=== PATIENT | male | born 1940 | race Caucasian/White ===

== ENCOUNTER 2018-02-21 12:36 | Inpatient (IN) | payer MEDICARE ==
[2018-02-21 13:47] VITALS: BMI 29.9
[2018-02-21] MEDS ORDERED: Nitroglycerin 0.4 MG TAB (25 Tab Bottle) SL PRN (14:33)
[2018-02-21] MEDS ORDERED: Docusate 100 MG CAP PO PRN (14:33)
[2018-02-21] MEDS ORDERED: Mag-Al Plus 1200 MG/1200 MG/120 MG/30 ML UDCUP PO PRN (14:33)
[2018-02-21] MEDS: Acetaminophen 500 MG TAB PO SCH ×2 (16:45→20:04)
[2018-02-21] MEDS: Metoprolol Tartrate 25 MG TAB PO SCH (20:04)
--- NOTE | 2018-02-22 00:01 | HP ---
DATE OF ADMISSION: 02/21/2018 CHIEF COMPLAINT: Transferred to [facility] for skilled rehabilitation status post hospitalization. HISTORY OF PRESENT ILLNESS AND HOSPITAL COURSE: Mr. Rosas is a very pleasant 77-year-old male from [place], [place], who was transferred to [facility] for skilled rehabilitation, coming from [facility]. The patient had a history of reflux, hypertension, and smoking. He was initially sent to the Emergency Room in [place], [place] with the complaint of acute chest discomfort. This was associated with diaphoresis, described as "clenching sweats". He had 4 episodes, the one woke him up from sleep. The patient was subsequently transferred after the initial evaluation from the ER subsequently transferred to [facility] due to slightly elevated troponin with negative EKG. On further examination and evaluation at [facility], the patient's EKGs showed sinus rhythm with nonspecific ST changes. Serial cardiac enzymes were again negative. He has had an echocardiogram, EGD in [facility]. The patient was diagnosed with unstable angina and underwent a fluoroscopic angiography of an internal mammary artery and angiography of the coronary arteries, bilateral catheterization of the left heart. The patient had found to have left ventricular ejection fraction of 60- 65%, end-diastolic pressure. The left coronary artery has 20% plaque in the distal segment. The left anterior descending artery has a large-sized vessel which gave rise to a large diagonal branch with severe 95% ulcerated plaque in the proximal segment. The first diagonal artery has a severe 95% stenosis. This gave rise to 2 sub branches. The second sub branch which is the larger of the two has 99% ostial stenosis present. The circumflex coronary artery has a large-sized vessel which gave rise to obtuse marginal branches. The first obtuse marginal artery has diffuse nonocclusive luminal irregularities. The second obtuse marginal artery has a severe 80% stenosis in the midsegment. The right coronary artery has a large-sized vessel which gave rise to a large posterior descending artery, moderate posterior lateral trigger branch. There is a 20% plaque in the proximal segment. There is a 20% plaque in the mid portion of the posterior descending artery. The left internal mammary is widely patent. Patient was then recommended coronary bypass graft surgery, for which he underwent on 02/14/[address] Herbert Hurd. The patient had an unremarkable postoperative course. During this hospitalization, his BP was mildly elevated, so he was started on the Beta leroy together with the statin He is now ambulating some using a rolling walker. The patient lives alone and remains generally weak. He was deemed to benefit more of skilled rehabilitation prior to going back to the home environment. The patient was then transferred to [facility] to undergo rehabilitation. He was transferred with an order to continue DVT prophylaxis with Lovenox. When seen today, the patient was resting comfortably in bed. He is awake, alert, oriented. He has a good recollection of what had happened why he ended up in the ER as above. No other new issues reported. Reports that he has been pain-free since 24 hours after the procedure. No other new issues at this time. MEDICAL HISTORY: He admits to acid reflux. He was a borderline diabetic at one time. He denies any other medical problems. PAST SURGICAL HISTORY: He has had surgery of the left eye. Cardiac catheterization on 02/14/2018 at [facility] by Dr. Hurd for CAD and unstable angina. SOCIAL HISTORY: Patient is single, has been 4 times. He lives near [place]. He smoked from age until a 64, approximately 1-1/2 packs of cigarettes per day. He drinks alcohol occasionally. He has no significant history of illicit drug use. FAMILY HISTORY: Mother at about 82 because of old age. Father in his 80s because of lung cancer. One brother with lung cancer. One brother with melanoma. One sister in a motor vehicular accident and one sister of fall age. MEDICATIONS: Acetaminophen 500 mg p.o. q.4 hours p.r.n., aspirin 81 mg p.o. daily, atorvastatin 40 mg p.o. daily, cholecalciferol 1000 units p.o. daily, docusate 100 mg p.o. daily p.r.n., Lovenox 40 mg subcu daily, magnesium oxide, simethicone 30 mL p.o. q.4 hours p.r.n., metoprolol tartrate 25 mg p.o. b.i.d., nitroglycerin 0.4 mg sublingual p.r.n., pantoprazole 40 mg p.o. daily. ALLERGIES: NKDA. REVIEW OF SYSTEMS: General: Denies fever or chills. Reports general weakness and fatigue. HEENT: No acute visual changes or hearing changes. No cold symptoms or cough. Respiratory: No shortness of breath, pain with breathing, sputum production. Cardiac: As per HPI, currently no recurrence of chest pain , no pain with breathing. No dyspnea on exertion or paroxysmal nocturnal dyspnea. Gastrointestinal: No nausea or vomiting. He has history of reflux symptoms. No rectal bleeding. No constipation or diarrhea. Genitourinary: No dysuria, hematuria, frequency, urgency, or incontinence. Musculoskeletal: Intermittent mild arthralgia. No joint swelling, no joint effusions, no myalgia. Skin: No rashes, no lesions. Known history of nonhealing ulcers. Psych: No depressive symptoms, anxiety, or insomnia. PHYSICAL EXAMINATION: VITAL SIGNS: BP 153/70 HR 86 RR 22 Temp 98.6 O2 sat 93% at RA WT ; 233 lbs Ht 72 inches GENERAL: Awake,alert, interactive, Comfortable on exam, Not in acute distress. HEENT: normocephalic, atraumatic. PERRL,EOMI,clear naris,oropharynx-normal. Moist oral mucosa. NECK: supple, No LAD, flat JVD. CHEST: normal excursion. nonlabored breathing. RESPIRATORY: Good air movements.Clear to auscultation.NO crackles, no wheezes, no rhonchi,no rales. CARDIO: RSR, normal S1 and S2. no murmurs. GI: soft,flat,nondistended, nontender, NABS. Negative CVA tenderness. EXTREMITIES: No cyanosis, no leg edema. NEURO: nonfocal, DTR's 2 ++, unsteady gait. PSYCH: pleasant,calm, cooperative. SKIN: Post op sites dry and healing in appearance, dry,no drainage, no exudates. ASSESSMENT AND PLAN: 1. Physical deconditioning. 2. General weakness. 3. History of unstable angina, status post cardiac catheterization showing severe vessel coronary artery disease, status post coronary artery bypass graft in 02/15. 4. Hypertension, apparently diagnosed at this hospitalization with no prior history of hypertension or hypertension medications. 5. Dyslipidemia. 6. Gastroesophageal reflux disease. 7. History of hiatal hernia. 8. Chronic kidney disease, stage 3. 9. Leukocytosis, improving. Most likely stress related in the setting of coronary artery bypass graft . No signs of active infection. 10. A [id number] history of tobacco abuse. The patient is admitted to med/surg for skilled rehabilitation. PT, OT evaluation and treat. We will continue current medications. We will continue to monitor labs. GI prophylaxis with PPI. DVT prophylaxis with Lovenox. Further recommendations depending on the hospital course. Estimated length of stay, 2-3 weeks. CODE STATUS: Patient was FULL CODE per hospital records, but PATIENT REPORTS TODAY to be DONOT RESUSCITATE/DONOT INTUBATE. Patient is deemed lucid, with good insight and good judgment. He is responsible for himself. We tried calling the daughter, Jessica Kuhn, to discuss further, but patient's daughter was not available. Unknown number per medical records of [phone] , is not a working number either. The patient reports that his daughter knows what his wishes and she is aware of the DNR status. CEDRIC
[2018-02-22] MEDS: Acetaminophen 500 MG TAB PO SCH ×6 (01:47→19:55)
[2018-02-22 05:32] LABS: #Basophils 0.2 thou/uL (0.0-0.2); #Eosinphils 0.2 thou/uL (0.0-0.7); #Lymphocytes 1.3 thou/uL (1.20-3.40); #Monocytes 1.1 thou/uL (0.11-0.59); #Neutrophils 7.7 thou/uL (1.40-6.50); %Basophils 1.5 % (0.0-1.0); %Eosinophils 1.6 % (0.0-10.0); %Lymphocytes 12.1 % (21.0-51.0); %Monocytes 10.5 % (0.0-10.0); %Neutrophils 74.3 % (42.0-75.0); Hemoglobin 10.8 g/dL (14.0-18.0); Mean Corpuscular HGB CONC 35.3 g/dL (32.0-36.0); Mean Corpuscular Hemoglobin 31.9 pg (27.0-31.0); Mean Corpuscular Volume 90.3 fl (80.0-94.0); Mean Platelet Volume 6.6 fL (7.4-10.4); Platelet Count 282 thou/uL (130-400); RBC Distribution Width 12.3 % (11.5-14.5); Red Blood Cell (RBC) Count 3.38 mill/uL (4.70-6.10); White Blood Cell (WBC) Count 10.4 thou/uL (4.8-10.8)
[2018-02-22 05:41] LABS: Anion Gap 12 mmol/L (10-20); BUN (Urea Nitrogen) 20 mg/dL (8.4-25.7); Calc. Creatinine Clearance 81 mL/min (70-130); Calcium 8.9 mg/dL (7.8-10.44); Carbon Dioxide 24 mmol/L (23-31); Chloride 111 mmol/L (98-107); Estimated GFR-MDRD 63; Potassium 3.8 mmol/L (3.5-5.1); Sodium 143 mmol/L (136-145)
[2018-02-22 05:45] LABS: Glucose 111 mg/dL (83-110)
[2018-02-22] MEDS: Aspirin 81 mg Enteric Coated Tablet PO SCH (09:14)
[2018-02-22] MEDS: Metoprolol Tartrate 25 MG TAB PO SCH ×2 (09:14→19:56)
[2018-02-22] MEDS: Atorvastatin Calcium 10 MG TAB PO SCH (09:15)
[2018-02-22] MEDS: Enoxaparin Sodium 40 MG/0.4 ML SYRINGE SC SCH (09:15)
[2018-02-23] MEDS: Acetaminophen 500 MG TAB PO SCH ×6 (00:57→20:07)
[2018-02-23] MEDS: Enoxaparin Sodium 40 MG/0.4 ML SYRINGE SC SCH (08:27)
[2018-02-23] MEDS: Metoprolol Tartrate 25 MG TAB PO SCH ×2 (08:27→20:07)
[2018-02-23] MEDS: Atorvastatin Calcium 10 MG TAB PO SCH (08:27)
[2018-02-23] MEDS: Aspirin 81 mg Enteric Coated Tablet PO SCH (08:28)
[2018-02-24] MEDS: Acetaminophen 500 MG TAB PO SCH ×6 (01:08→20:23)
[2018-02-24] MEDS: Atorvastatin Calcium 10 MG TAB PO SCH (08:50)
[2018-02-24] MEDS: Metoprolol Tartrate 25 MG TAB PO SCH ×2 (08:50→20:21)
[2018-02-24] MEDS: Aspirin 81 mg Enteric Coated Tablet PO SCH (08:50)
[2018-02-24] MEDS: Enoxaparin Sodium 40 MG/0.4 ML SYRINGE SC SCH (08:51)
[2018-02-24] MEDS: Polyethylene Glycol 3350 17 GM Packet PO SCH (08:51)
[2018-02-25] MEDS: Acetaminophen 500 MG TAB PO SCH ×6 (00:34→20:23)
[2018-02-25] MEDS: Enoxaparin Sodium 40 MG/0.4 ML SYRINGE SC SCH (08:39)
[2018-02-25] MEDS: Polyethylene Glycol 3350 17 GM Packet PO SCH (08:39)
[2018-02-25] MEDS: Metoprolol Tartrate 25 MG TAB PO SCH ×2 (08:40→20:23)
[2018-02-25] MEDS: Aspirin 81 mg Enteric Coated Tablet PO SCH (08:40)
[2018-02-25] MEDS: Atorvastatin Calcium 10 MG TAB PO SCH (08:40)
[2018-02-26] MEDS: Acetaminophen 500 MG TAB PO SCH ×6 (01:04→20:23)
[2018-02-26] MEDS: Metoprolol Tartrate 25 MG TAB PO SCH ×2 (08:43→20:23)
[2018-02-26] MEDS: Enoxaparin Sodium 40 MG/0.4 ML SYRINGE SC SCH (08:43)
[2018-02-26] MEDS: Atorvastatin Calcium 10 MG TAB PO SCH (08:43)
[2018-02-26] MEDS: Aspirin 81 mg Enteric Coated Tablet PO SCH (08:43)
[2018-02-26] MEDS: Polyethylene Glycol 3350 17 GM Packet PO SCH (08:44)
[2018-02-27] MEDS: Acetaminophen 500 MG TAB PO SCH ×6 (01:25→20:52)
[2018-02-27] MEDS: Atorvastatin Calcium 10 MG TAB PO SCH (09:18)
[2018-02-27] MEDS: Metoprolol Tartrate 25 MG TAB PO SCH ×2 (09:18→20:52)
[2018-02-27] MEDS: Aspirin 81 mg Enteric Coated Tablet PO SCH (09:18)
[2018-02-27] MEDS: Enoxaparin Sodium 40 MG/0.4 ML SYRINGE SC SCH (09:18)
[2018-02-27] MEDS: Polyethylene Glycol 3350 17 GM Packet PO SCH (09:19)
[2018-02-28] MEDS: Acetaminophen 500 MG TAB PO SCH ×6 (02:21→20:46)
[2018-02-28] MEDS: Aspirin 81 mg Enteric Coated Tablet PO SCH (08:34)
[2018-02-28] MEDS: Polyethylene Glycol 3350 17 GM Packet PO SCH (08:34)
[2018-02-28] MEDS: Metoprolol Tartrate 25 MG TAB PO SCH ×2 (08:34→20:46)
[2018-02-28] MEDS: Enoxaparin Sodium 40 MG/0.4 ML SYRINGE SC SCH (08:34)
[2018-02-28] MEDS: Atorvastatin Calcium 10 MG TAB PO SCH (08:34)
[2018-03-01] MEDS: Acetaminophen 500 MG TAB PO SCH ×6 (01:55→20:37)
[2018-03-01 05:35] LABS: #Basophils 0.1 thou/uL (0.0-0.2); #Eosinphils 0.1 thou/uL (0.0-0.7); #Lymphocytes 1.2 thou/uL (1.20-3.40); #Monocytes 0.8 thou/uL (0.11-0.59); #Neutrophils 7.3 thou/uL (1.40-6.50); %Basophils 1.2 % (0.0-1.0); %Eosinophils 1.5 % (0.0-10.0); %Lymphocytes 12.8 % (21.0-51.0); %Monocytes 8.6 % (0.0-10.0); Hemoglobin 10.8 g/dL (14.0-18.0); Mean Corpuscular HGB CONC 33.3 g/dL (32.0-36.0); Mean Corpuscular Volume 89.9 fl (80.0-94.0); Mean Platelet Volume 5.8 fL (7.4-10.4); Platelet Count 386 thou/uL (130-400); RBC Distribution Width 12.3 % (11.5-14.5); White Blood Cell (WBC) Count 9.6 thou/uL (4.8-10.8)
[2018-03-01] MEDS: Polyethylene Glycol 3350 17 GM Packet PO SCH (08:51)
[2018-03-01] MEDS: Metoprolol Tartrate 25 MG TAB PO SCH ×2 (08:51→20:37)
[2018-03-01] MEDS: Aspirin 81 mg Enteric Coated Tablet PO SCH (08:51)
[2018-03-01] MEDS: Enoxaparin Sodium 40 MG/0.4 ML SYRINGE SC SCH (08:51)
[2018-03-01] MEDS: Atorvastatin Calcium 10 MG TAB PO SCH (08:51)
[2018-03-02] MEDS: Acetaminophen 500 MG TAB PO SCH ×4 (01:32→13:04)
[2018-03-02 08:50] VITALS: BP 132/72; TEMP 97.8
[2018-03-02] MEDS: Metoprolol Tartrate 25 MG TAB PO SCH (08:54)
[2018-03-02] MEDS: Aspirin 81 mg Enteric Coated Tablet PO SCH (08:54)
[2018-03-02] MEDS: Atorvastatin Calcium 10 MG TAB PO SCH (08:54)
[2018-03-02] MEDS: Polyethylene Glycol 3350 17 GM Packet PO SCH (08:54)
--- NOTE | 2018-03-02 20:22 | DIS ---
DATE OF ADMISSION: 02/21/2018 DATE OF DISCHARGE: 03/02/2018 REASON FOR ADMISSION: [facility] in [place] post-hospitalization. DISCHARGE DIAGNOSES: 1. Physical deconditioning. 2. General weakness. 3. History of unstable angina, status post cardiac catheterization showing severe vessel coronary ar nakia disease. Status post coronary artery bypass graft on 02/15/[address] Hurd. 4. Hypertension, new onset, now on current antihypertensive. 5. Dyslipidemia, new onset. 6. Gastroesophageal reflux, chronic. 7. History of hiatal hernia. 8. Chronic kidney disease stage 3. 9. Leukocytosis, unspecified, resolved. 10. A [id number] history of tobacco abuse. DISPOSITION: Home. CONDITION ON DISCHARGE: Stable. HOME MEDICATIONS: Acetaminophen 500 mg p.o. q.4. hours p.r.n., aspirin 81 mg p.o. daily, atorvastati n 40 mg p.o. at bedtime, cholecalciferol 1000 units p.o. daily, docusate 100 mg p.o. daily p.r.n., me toprolol tartrate 25 mg p.o. b.i.d., nitroglycerin 0.5 sublingual p.r.n., pantoprazole 40 [address] boyd ly. DISPOSITION: Discharge to home per request. DIET: Low salt, low fat, heart healthy. ACTIVITY: Ad demetris. Fall precautions. No heavy lifting for greater than 5 pounds. FOLLOWUP: 1. Follow up with Dr. Yancey to reestablish primary care in [facility] per augusto t. 2. Follow up with Dr. Hurd on 03/15 at 1430 hours. 3. Follow up with Dr. Madera, Cardiology, on 04/02 at 10:00 a.m. DME to be arranged prior to discharge. Outpatient cardiac rehabilitation in [facility] to be scheduled prior to discharge. HISTORY OF PRESENT ILLNESS AND HOSPITAL COURSE: Mr. Rosas is a very pleasant 77-year-old Caucasia n male from [place], [place], who was initially seen from [place] due to acute onset of chest discomf ort. He was transferred subsequently to [facility] for further cardiac managemen t. Patient was diagnosed with unstable angina and underwent fluoroscopic angiography of an internal mammary artery and angiography of the coronary arteries, bilateral catheterization of the left heart. Patient subsequently underwent CABG on 02/15/[address] Herbert Hurd. Patient had an unremark able postoperative course thereafter. During this hospitalization, patient was found to have an elev ated blood pressure, so he was started on beta leroy together with his statin. He was subsequently transferred to [facility] to continue rehab prior to going back to the home e [facility]. Patient did well on his rehabilitation. Rehab course was unremarkable. He was walking 300 feet with no use of assistive device prior to discharge. He was deemed to benefit more of [facility] rehabilitation either at home or as an outpatient. Patient and daughter then decided to proceed [facility] outpatient cardiac rehabilitation in [place] that is scheduled for next week. He will follow up with his specialist as scheduled. Patient does not have a primary care physician at this point a nd after talking to me, daughter and patient were in agreement to follow up with me in [facility] in a week. PHYSICAL EXAMINATION: VITAL SIGNS: Prior to discharge, blood pressure 132/72, temperature 97.8, pulse 98, respirations 17, O2 saturation 94%, weight 225 pounds and 1 ounce, height 6 feet 2 inches. TIME SPENT: Time spent on this discharge 32 minutes in both examining the patient, coordinating care and arrangement of followups.
== END 2018-03-02 14:00 | disposition home or self-care (01) | DRG 948 ==
LOC: MADMS 12:36
PROVIDERS: ADMIT Family Medicine; ATTEND Family Medicine
DX: R53.1 Weakness (principal); I25.110 Atherosclerotic heart disease of native coronary artery with unstable angina pectoris; K21.9 Gastro-esophageal reflux disease without esophagitis; F17.210 Nicotine dependence, cigarettes, uncomplicated; E78.5 Hyperlipidemia, unspecified; I12.9 Hypertensive chronic kidney disease with stage 1 through stage 4 chronic kidney disease, or unspecified chronic kidney disease; N18.3 Chronic kidney disease, stage 3 (moderate); K44.9 Diaphragmatic hernia without obstruction or gangrene; Z95.1 Presence of aortocoronary bypass graft; D72.829 Elevated white blood cell count, unspecified; Z66 Do not resuscitate
CPT/HCPCS: 36415; 80048; 85025; G8978-GP-CK; G8979-GP-CI; G8987-GO-CJ; G8988-GO-CH; J1650

== ENCOUNTER 2018-08-13 07:19 | Emergency (ER) | payer MEDICARE ==
[2018-08-13] MEDS ORDERED: Metoprolol Tartrate 50 MG TAB ONE (08:08)
== END 2018-08-13 08:30 ==
LOC: MADERS 07:19
DX: I10 Essential (primary) hypertension (principal)

== ENCOUNTER 2018-09-02 17:06 | Emergency (ER) | payer MEDICARE, OTHER | END 2018-09-02 18:12 | disposition home or self-care (01) | LOC: MADERS 17:06 | DX: I10 Essential (primary) hypertension (principal); I25.2 Old myocardial infarction; K21.9 Gastro-esophageal reflux disease without esophagitis; E78.5 Hyperlipidemia, unspecified; F32.9 Major depressive disorder, single episode, unspecified; Z79.899 Other long term (current) drug therapy; Z79.82 Long term (current) use of aspirin | CPT/HCPCS: 99283 ==

== ENCOUNTER 2018-10-01 07:36 | Emergency (ER) | payer MEDICARE ==
[2018-10-01] MEDS ORDERED: Amoxicillin/Potassium Clav 875 MG TAB ONE (08:57)
[2018-10-01] MEDS ORDERED: Dexamethasone 4 MG TAB ONE (08:57)
[2018-10-01] MEDS ORDERED: Benzonatate 100 MG CAP ONE (08:57)
== END 2018-10-01 09:02 | disposition home or self-care (01) ==
LOC: MADERS 07:36
DX: J04.10 Acute tracheitis without obstruction (principal); I25.2 Old myocardial infarction; K21.9 Gastro-esophageal reflux disease without esophagitis; I10 Essential (primary) hypertension; E78.5 Hyperlipidemia, unspecified; F32.9 Major depressive disorder, single episode, unspecified; B96.89 Other specified bacterial agents as the cause of diseases classified elsewhere; Z79.899 Other long term (current) drug therapy
CPT/HCPCS: 87804; 99283; J8540

== ENCOUNTER 2019-01-16 14:07 | Outpatient (CLI) | payer MEDICARE ==
--- NOTE | 2019-01-16 14:43 | CT ---
CT Abdomen Pelvis WO Con History: [Abdominal distention] Comparison: None. Findings: The lung bases are clear. No pericardial effusion. There is focal ectasia of the infrarenal abdominal aorta which measures up to 2.6 cm. No nephroureterolithiasis or hydroureteronephrosis. No secondary evidence of a recently passed stone. Low-grade proximal small bowel mesenteric edema is nonspecific and likely chronic. There are no dilat ed loops the sigmoid colon is collapsed. Noncontrast evaluation of the liver, spleen, gallbladder are unremarkable. No acute osseous abnormali ty. Impression: 1. No nephro ureterolithiasis or hydroureteronephrosis. No secondary evidence of a recently passed st one. 2. No acute inflammatory process within the abdomen or pelvis.
== END 2019-01-16 14:08 | disposition home or self-care (01) ==
LOC: MADCT 14:07
PROVIDERS: ATTEND Family Medicine
DX: R14.0 Abdominal distension (gaseous) (principal)
CPT/HCPCS: 74176

== ENCOUNTER 2019-07-16 10:06 | Emergency (ER) | payer MEDICARE ==
--- NOTE | 2019-07-16 10:27 | RAD ---
XR Chest 1 View Portable HISTORY: Chest pain COMPARISON: None. FINDINGS: Heart size is within normal limits. There are postop sternotomy changes. There are atherosc lerotic changes of the aorta. The lungs are clear of infiltrates. IMPRESSION: Mild chronic lung change.
[2019-07-16 10:37] LABS: #Basophils 0.2 thou/uL (0.0-0.2); #Eosinphils 0.1 thou/uL (0.0-0.7); #Lymphocytes 1.7 thou/uL (1.20-3.40); #Monocytes 1.3 thou/uL (0.11-0.59); #Neutrophils 7.9 thou/uL (1.40-6.50); %Basophils 1.7 % (0.0-1.0); %Eosinophils 0.7 % (0.0-10.0); %Lymphocytes 15.4 % (21.0-51.0); %Monocytes 11.3 % (0.0-10.0); %Neutrophils 70.8 % (42.0-75.0); Hemoglobin 13.9 g/dL (14.0-18.0); Mean Corpuscular HGB CONC 32.5 g/dL (32.0-36.0); Mean Corpuscular Hemoglobin 29.6 pg (27.0-31.0); Mean Corpuscular Volume 91.1 fL (78.0-98.0); Mean Platelet Volume 6.5 fL (7.4-10.4); Platelet Count 250 thou/uL (130-400); RBC Distribution Width 12.6 % (11.5-14.5); Red Blood Cell (RBC) Count 4.69 mill/uL (4.70-6.10); White Blood Cell (WBC) Count 11.1 thou/uL (4.8-10.8)
[2019-07-16 10:48] LABS: ALT (SGPT) 39 U/L (8-55); AST (SGOT) 36 U/L (5-34); Albumin 4.2 g/dL (3.4-4.8); Alkaline Phosphatase 155 U/L (40-110); Anion Gap 15 mmol/L (10-20); BUN (Urea Nitrogen) 19 mg/dL (8.4-25.7); Bilirubin, Total 0.6 mg/dL (0.2-1.2); Calc. Creatinine Clearance 0 mL/min (70-130); Calcium 9.5 mg/dL (7.8-10.44); Carbon Dioxide 23 mmol/L (23-31); Chloride 107 mmol/L (98-107); Estimated GFR-MDRD 52; Glucose 160 mg/dL (83-110); Potassium 4.3 mmol/L (3.5-5.1); Protein, Total 7.2 g/dL (5.8-8.1); Sodium 141 mmol/L (136-145)
== END 2019-07-16 12:30 | disposition short-term general hospital (02) ==
LOC: MADERS 10:06
DX: R07.9 Chest pain, unspecified (principal); I25.2 Old myocardial infarction; K21.9 Gastro-esophageal reflux disease without esophagitis; I10 Essential (primary) hypertension; E78.5 Hyperlipidemia, unspecified; F32.9 Major depressive disorder, single episode, unspecified; Z79.899 Other long term (current) drug therapy; Z79.82 Long term (current) use of aspirin; Z79.84 Long term (current) use of oral hypoglycemic drugs
CPT/HCPCS: 71045; 80053; 83880; 84484; 85025; 93005

== ENCOUNTER 2020-01-08 13:51 | Outpatient (CLI) | payer MEDICARE ==
[2020-01-08 14:26] LABS: ALT (SGPT) 45 U/L (8-55); AST (SGOT) 37 U/L (5-34); Albumin 4.2 g/dL (3.4-4.8); Alkaline Phosphatase 185 U/L (40-110); Anion Gap 16 mmol/L (10-20); BUN (Urea Nitrogen) 20 mg/dL (8.4-25.7); Bilirubin, Total 0.5 mg/dL (0.2-1.2); Calc. Creatinine Clearance 0 mL/min (70-130); Calcium 9.7 mg/dL (7.8-10.44); Carbon Dioxide 24 mmol/L (23-31); Chloride 104 mmol/L (98-107); Estimated GFR-MDRD 48; Globulin 3.1 g/dL (2.4-3.5); Glucose 225 mg/dL (83-110); Potassium 3.8 mmol/L (3.5-5.1); Protein, Total 7.3 g/dL (5.8-8.1); Sodium 140 mmol/L (136-145)
== END 2020-01-08 13:52 | disposition home or self-care (01) ==
LOC: MADLABBHPM 13:51
PROVIDERS: ATTEND Family Medicine
DX: E11.9 Type 2 diabetes mellitus without complications (principal); G47.00 Insomnia, unspecified
CPT/HCPCS: 36415; 80053; 83036

== ENCOUNTER 2021-06-25 19:58 | Emergency (ER) | payer MEDICARE ==
[2021-06-25 20:55] LABS: #Basophils 0.4 thou/uL (0.0-0.2); #Lymphocytes 0.7 thou/uL (1.20-3.40); #Monocytes 1.7 thou/uL (0.11-0.59); #Neutrophils 12.4 thou/uL (1.40-6.50); %Basophils 2.5 % (0.0-1.0); %Eosinophils 0.1 % (0.0-10.0); %Lymphocytes 4.4 % (21.0-51.0); %Monocytes 11.2 % (0.0-10.0); %Neutrophils 81.9 % (42.0-75.0); Hemoglobin 12.2 g/dL (14.0-18.0); Mean Corpuscular HGB CONC 32.3 g/dL (32.0-36.0); Mean Corpuscular Hemoglobin 29.5 pg (27.0-31.0); Mean Corpuscular Volume 91.4 fL (78.0-98.0); Mean Platelet Volume 6.6 fL (7.4-10.4); Platelet Count 269 thou/uL (130-400); RBC Distribution Width 12.4 % (11.5-14.5); Red Blood Cell (RBC) Count 4.13 mill/uL (4.70-6.10); White Blood Cell (WBC) Count 15.1 thou/uL (4.8-10.8)
[2021-06-25 21:24] LABS: ALT (SGPT) 26 U/L (8-55); AST (SGOT) 21 U/L (5-34); Albumin 3.9 g/dL (3.4-4.8); Alkaline Phosphatase 108 U/L (40-110); Anion Gap 18 mmol/L (10-20); BUN (Urea Nitrogen) 25 mg/dL (8.4-25.7); Bilirubin, Total 0.9 mg/dL (0.2-1.2); CK (CPK) 79 U/L (30-200); Calc. Creatinine Clearance 0 mL/min (70-130); Calcium 9.4 mg/dL (7.8-10.44); Carbon Dioxide 21 mmol/L (23-31); Globulin 2.8 g/dL (2.4-3.5); Glucose 149 mg/dL (83-110); Protein, Total 6.7 g/dL (5.8-8.1)
[2021-06-25 21:38] LABS: Chloride 100 mmol/L (98-107); Potassium 3.5 mmol/L (3.5-5.1); Sodium 135 mmol/L (136-145)
[2021-06-25] MEDS ORDERED: Sodium Chloride 0.9% 1,000 ML ONE (22:52)
[2021-06-25] MEDS ORDERED: Sodium Chloride 0.9% 100 ML ONE (22:52)
[2021-06-25] MEDS ORDERED: cefTRIAXone\\ROCEPHIN 1 GM VIAL ONE (22:53)
[2021-06-25] MEDS ORDERED: Sodium Chloride 0.9% 250 ML 250 ML ONE (23:24)
[2021-06-25] MEDS ORDERED: Azithromycin 500 MG VIAL ONE (23:24)
[2021-06-26] MEDS ORDERED: Acetaminophen 500 MG TAB ONE (01:16)
== END 2021-06-26 01:30 ==
LOC: MADERS 19:58
DX: U07.1 COVID-19 (principal); I25.2 Old myocardial infarction; K21.9 Gastro-esophageal reflux disease without esophagitis; I10 Essential (primary) hypertension; Z79.82 Long term (current) use of aspirin; Z79.84 Long term (current) use of oral hypoglycemic drugs; Z79.899 Other long term (current) drug therapy
CPT/HCPCS: 71045; 80053; 82550; 83605; 84484; 85025; 93005; 96365; 96367; J0456; J0696; J3490; J7050

== ENCOUNTER 2021-07-16 19:07 | Inpatient (IN) | payer MEDICARE ==
[2021-07-16] MEDS ORDERED: Nitroglycerin 0.4 MG TAB (25 Tab Bottle) SL PRN (19:34)
[2021-07-16] MEDS ORDERED: Benzonatate 100 MG CAP PO PRN (19:34)
[2021-07-16] MEDS: Acetaminophen 500 MG TAB PO SCH (22:43)
[2021-07-16] MEDS: Donepezil HCl 10 MG TAB PO SCH (22:44)
[2021-07-16] MEDS: Apixaban 5 MG TAB PO SCH (22:46)
[2021-07-16] MEDS: Tamsulosin HCl 0.4 MG CAP PO SCH (22:47)
[2021-07-16] MEDS: Atorvastatin Calcium 40 MG TAB PO SCH (22:47)
[2021-07-16] MEDS: metFORMIN 850 MG TAB PO SCH (22:47)
[2021-07-17 00:43] VITALS: BMI 27.0
[2021-07-17] MEDS: Acetaminophen 500 MG TAB PO SCH ×4 (02:42→12:16)
[2021-07-17] MEDS ORDERED: FLU VACC QS2021-22(65YR UP)/PF 240 MCG/0.7 ML SYRINGE IM ONE (09:00)
[2021-07-17] MEDS: Polyethylene Glycol 3350 17 GM Packet PO SCH (09:32)
[2021-07-17] MEDS: metFORMIN 850 MG TAB PO SCH ×2 (09:32→21:00)
[2021-07-17] MEDS: Finasteride 5 MG TAB PO SCH (09:32)
[2021-07-17] MEDS: Hydrochlorothiazide 25 MG TAB PO SCH (09:32)
[2021-07-17] MEDS: Metoprolol Tartrate 25 MG TAB PO SCH (09:32)
[2021-07-17] MEDS: Cholecalciferol 1,000 UNITS (25 MCG) TAB PO SCH (09:34)
[2021-07-17] MEDS: Apixaban 5 MG TAB PO SCH ×2 (09:34→20:59)
[2021-07-17] MEDS: Donepezil HCl 10 MG TAB PO SCH (20:59)
[2021-07-17] MEDS: Atorvastatin Calcium 40 MG TAB PO SCH (20:59)
[2021-07-17] MEDS: Tamsulosin HCl 0.4 MG CAP PO SCH (21:01)
[2021-07-18] MEDS: Hydrochlorothiazide 25 MG TAB PO SCH (08:56)
[2021-07-18] MEDS: Cholecalciferol 1,000 UNITS (25 MCG) TAB PO SCH (08:56)
[2021-07-18] MEDS: Apixaban 5 MG TAB PO SCH ×2 (08:56→20:05)
[2021-07-18] MEDS: Finasteride 5 MG TAB PO SCH (08:56)
[2021-07-18] MEDS: Metoprolol Tartrate 25 MG TAB PO SCH (08:57)
[2021-07-18] MEDS: metFORMIN 850 MG TAB PO SCH ×2 (08:57→20:05)
[2021-07-18] MEDS: Polyethylene Glycol 3350 17 GM Packet PO SCH (08:57)
[2021-07-18] MEDS: Tamsulosin HCl 0.4 MG CAP PO SCH (20:04)
[2021-07-18] MEDS: Atorvastatin Calcium 40 MG TAB PO SCH (20:04)
[2021-07-18] MEDS: Donepezil HCl 10 MG TAB PO SCH (20:05)
[2021-07-19 05:17] LABS: Hemoglobin 13.2 g/dL (14.0-18.0); Platelet Count 403 thou/uL (130-400)
[2021-07-19] MEDS: metFORMIN 850 MG TAB PO SCH ×2 (09:17→20:15)
[2021-07-19] MEDS: Cholecalciferol 1,000 UNITS (25 MCG) TAB PO SCH (09:17)
[2021-07-19] MEDS: Metoprolol Tartrate 25 MG TAB PO SCH (09:17)
[2021-07-19] MEDS: Finasteride 5 MG TAB PO SCH (09:18)
[2021-07-19] MEDS: Apixaban 5 MG TAB PO SCH ×2 (09:18→20:16)
[2021-07-19] MEDS: Hydrochlorothiazide 25 MG TAB PO SCH (09:18)
[2021-07-19] MEDS: Polyethylene Glycol 3350 17 GM Packet PO SCH (09:18)
[2021-07-19] MEDS: Donepezil HCl 10 MG TAB PO SCH (20:15)
[2021-07-19] MEDS: Atorvastatin Calcium 40 MG TAB PO SCH (20:15)
[2021-07-19] MEDS: Tamsulosin HCl 0.4 MG CAP PO SCH (20:16)
[2021-07-20] MEDS: Finasteride 5 MG TAB PO SCH (09:33)
[2021-07-20] MEDS: Polyethylene Glycol 3350 17 GM Packet PO SCH ×2 (09:33→09:34)
[2021-07-20] MEDS: Cholecalciferol 1,000 UNITS (25 MCG) TAB PO SCH (09:33)
[2021-07-20] MEDS: Metoprolol Tartrate 25 MG TAB PO SCH (09:33)
[2021-07-20] MEDS: Apixaban 5 MG TAB PO SCH ×2 (09:33→20:52)
[2021-07-20] MEDS: Hydrochlorothiazide 25 MG TAB PO SCH (09:33)
[2021-07-20] MEDS: metFORMIN 850 MG TAB PO SCH ×2 (09:33→20:52)
[2021-07-20] MEDS: Tamsulosin HCl 0.4 MG CAP PO SCH (20:52)
[2021-07-20] MEDS: Donepezil HCl 10 MG TAB PO SCH (20:52)
[2021-07-20] MEDS: Atorvastatin Calcium 40 MG TAB PO SCH (20:52)
[2021-07-20] MEDS: Acetaminophen 500 MG TAB PO PRN (21:01)
[2021-07-21] MEDS: metFORMIN 850 MG TAB PO SCH ×2 (10:22→20:56)
[2021-07-21] MEDS: Polyethylene Glycol 3350 17 GM Packet PO SCH (10:22)
[2021-07-21] MEDS: Finasteride 5 MG TAB PO SCH (10:22)
[2021-07-21] MEDS: Metoprolol Tartrate 25 MG TAB PO SCH (10:22)
[2021-07-21] MEDS: Apixaban 5 MG TAB PO SCH ×2 (10:22→20:57)
[2021-07-21] MEDS: Cholecalciferol 1,000 UNITS (25 MCG) TAB PO SCH (10:22)
[2021-07-21] MEDS: Hydrochlorothiazide 25 MG TAB PO SCH (10:23)
[2021-07-21] MEDS: Atorvastatin Calcium 40 MG TAB PO SCH (20:56)
[2021-07-21] MEDS: Tamsulosin HCl 0.4 MG CAP PO SCH (20:56)
[2021-07-21] MEDS: Melatonin 3 MG TAB PO PRN ×2 (20:57→22:49)
[2021-07-21] MEDS: Donepezil HCl 10 MG TAB PO SCH (20:57)
[2021-07-21] MEDS: Acetaminophen 500 MG TAB PO PRN (22:49)
[2021-07-22] MEDS: Cholecalciferol 1,000 UNITS (25 MCG) TAB PO SCH (08:58)
[2021-07-22] MEDS: metFORMIN 850 MG TAB PO SCH ×2 (08:58→21:21)
[2021-07-22] MEDS: Finasteride 5 MG TAB PO SCH (08:58)
[2021-07-22] MEDS: Hydrochlorothiazide 25 MG TAB PO SCH (08:58)
[2021-07-22] MEDS: Apixaban 5 MG TAB PO SCH ×2 (08:58→21:19)
[2021-07-22] MEDS: Polyethylene Glycol 3350 17 GM Packet PO SCH (08:58)
[2021-07-22] MEDS: Metoprolol Tartrate 25 MG TAB PO SCH ×2 (08:59→21:19)
[2021-07-22] MEDS: Atorvastatin Calcium 40 MG TAB PO SCH (21:19)
[2021-07-22] MEDS: Tamsulosin HCl 0.4 MG CAP PO SCH (21:19)
[2021-07-22] MEDS: Donepezil HCl 10 MG TAB PO SCH (21:21)
[2021-07-22] MEDS: Acetaminophen 500 MG TAB PO PRN (21:27)
[2021-07-22] MEDS: Melatonin 3 MG TAB PO PRN (21:27)
[2021-07-23 05:27] LABS: Hemoglobin 12.6 g/dL (14.0-18.0); Mean Corpuscular HGB CONC 32.6 g/dL (32.0-36.0); Mean Corpuscular Hemoglobin 29.3 pg (27.0-31.0); Mean Corpuscular Volume 89.9 fL (78.0-98.0); Mean Platelet Volume 6.3 fL (7.4-10.4); Platelet Count 319 thou/uL (130-400); RBC Distribution Width 13.5 % (11.5-14.5); Red Blood Cell (RBC) Count 4.29 mill/uL (4.70-6.10); White Blood Cell (WBC) Count 7.9 thou/uL (4.8-10.8)
[2021-07-23 05:47] LABS: Anion Gap 15 mmol/L (10-20); BUN (Urea Nitrogen) 32 mg/dL (8.4-25.7); Carbon Dioxide 26 mmol/L (23-31); Chloride 100 mmol/L (98-107); Glucose 112 mg/dL (83-110); Potassium 3.3 mmol/L (3.5-5.1); Sodium 138 mmol/L (136-145)
[2021-07-23 06:01] LABS: Calc. Creatinine Clearance 65 mL/min (70-130)
[2021-07-23] MEDS: metFORMIN 850 MG TAB PO SCH ×2 (09:25→20:39)
[2021-07-23] MEDS: Metoprolol Tartrate 25 MG TAB PO SCH ×2 (09:26→20:39)
[2021-07-23] MEDS: Apixaban 5 MG TAB PO SCH ×2 (09:26→20:39)
[2021-07-23] MEDS: Finasteride 5 MG TAB PO SCH (09:26)
[2021-07-23] MEDS: Polyethylene Glycol 3350 17 GM Packet PO SCH ×2 (09:26→09:28)
[2021-07-23] MEDS: Cholecalciferol 1,000 UNITS (25 MCG) TAB PO SCH (09:26)
[2021-07-23] MEDS ORDERED: Potassium Chloride 10 MEQ TAB PO SCH (17:30)
[2021-07-23] MEDS: Atorvastatin Calcium 40 MG TAB PO SCH (20:39)
[2021-07-23] MEDS: Donepezil HCl 10 MG TAB PO SCH (20:39)
[2021-07-23] MEDS: Tamsulosin HCl 0.4 MG CAP PO SCH (20:40)
[2021-07-24] MEDS: metFORMIN 850 MG TAB PO SCH ×2 (08:33→20:27)
[2021-07-24] MEDS: Potassium Chloride 10 MEQ TAB PO SCH (08:33)
[2021-07-24] MEDS: Cholecalciferol 1,000 UNITS (25 MCG) TAB PO SCH (08:33)
[2021-07-24] MEDS: Polyethylene Glycol 3350 17 GM Packet PO SCH (08:33)
[2021-07-24] MEDS: Metoprolol Tartrate 25 MG TAB PO SCH ×2 (08:33→20:28)
[2021-07-24] MEDS: Apixaban 5 MG TAB PO SCH ×2 (08:34→20:26)
[2021-07-24] MEDS: Finasteride 5 MG TAB PO SCH (08:34)
[2021-07-24] MEDS: Atorvastatin Calcium 40 MG TAB PO SCH (20:26)
[2021-07-24] MEDS: Donepezil HCl 10 MG TAB PO SCH (20:26)
[2021-07-24] MEDS: Tamsulosin HCl 0.4 MG CAP PO SCH (20:28)
[2021-07-24] MEDS: Acetaminophen 500 MG TAB PO PRN (20:28)
[2021-07-24] MEDS: Melatonin 3 MG TAB PO PRN (20:29)
[2021-07-25] MEDS: Potassium Chloride 10 MEQ TAB PO SCH (08:05)
[2021-07-25] MEDS: Finasteride 5 MG TAB PO SCH (08:05)
[2021-07-25] MEDS: metFORMIN 850 MG TAB PO SCH ×2 (08:05→21:38)
[2021-07-25] MEDS: Cholecalciferol 1,000 UNITS (25 MCG) TAB PO SCH (08:05)
[2021-07-25] MEDS: Apixaban 5 MG TAB PO SCH ×2 (08:05→21:38)
[2021-07-25] MEDS: Acetaminophen 500 MG TAB PO PRN ×2 (08:06→21:41)
[2021-07-25] MEDS: Metoprolol Tartrate 25 MG TAB PO SCH ×2 (08:06→21:38)
[2021-07-25] MEDS: Polyethylene Glycol 3350 17 GM Packet PO SCH (08:06)
[2021-07-25] MEDS: Atorvastatin Calcium 40 MG TAB PO SCH (21:38)
[2021-07-25] MEDS: Melatonin 3 MG TAB PO PRN (21:38)
[2021-07-25] MEDS: Tamsulosin HCl 0.4 MG CAP PO SCH (21:38)
[2021-07-25] MEDS: Donepezil HCl 10 MG TAB PO SCH (21:38)
[2021-07-25] MEDS: Docusate 100 MG CAP PO PRN (21:38)
[2021-07-26] MEDS: Polyethylene Glycol 3350 17 GM Packet PO SCH (08:29)
[2021-07-26] MEDS: Cholecalciferol 1,000 UNITS (25 MCG) TAB PO SCH (08:29)
[2021-07-26] MEDS: Finasteride 5 MG TAB PO SCH (08:29)
[2021-07-26] MEDS: Potassium Chloride 10 MEQ TAB PO SCH (08:29)
[2021-07-26] MEDS: metFORMIN 850 MG TAB PO SCH ×2 (08:29→21:00)
[2021-07-26] MEDS: Apixaban 5 MG TAB PO SCH ×2 (08:29→21:00)
[2021-07-26] MEDS: Metoprolol Tartrate 25 MG TAB PO SCH ×2 (08:29→20:59)
[2021-07-26 14:45] LABS: Anion Gap 19 mmol/L (10-20); BUN (Urea Nitrogen) 23 mg/dL (8.4-25.7); Calc. Creatinine Clearance 74 mL/min (70-130); Calcium 9.2 mg/dL (7.8-10.44); Carbon Dioxide 21 mmol/L (23-31); Chloride 105 mmol/L (98-107); Glucose 121 mg/dL (83-110); Potassium 3.9 mmol/L (3.5-5.1); Sodium 141 mmol/L (136-145)
[2021-07-26] MEDS: Tamsulosin HCl 0.4 MG CAP PO SCH (20:59)
[2021-07-26] MEDS: Melatonin 3 MG TAB PO PRN (21:00)
[2021-07-26] MEDS: Docusate 100 MG CAP PO PRN (21:00)
[2021-07-26] MEDS: Acetaminophen 500 MG TAB PO PRN (21:00)
[2021-07-26] MEDS: Donepezil HCl 10 MG TAB PO SCH (21:00)
[2021-07-26] MEDS: Atorvastatin Calcium 40 MG TAB PO SCH (21:00)
[2021-07-27] MEDS: metFORMIN 850 MG TAB PO SCH ×2 (08:45→21:00)
[2021-07-27] MEDS: Cholecalciferol 1,000 UNITS (25 MCG) TAB PO SCH (08:45)
[2021-07-27] MEDS: Finasteride 5 MG TAB PO SCH (08:45)
[2021-07-27] MEDS: Apixaban 5 MG TAB PO SCH ×2 (08:45→21:00)
[2021-07-27] MEDS: Metoprolol Tartrate 25 MG TAB PO SCH ×3 (08:45→21:00)
[2021-07-27] MEDS: Potassium Chloride 10 MEQ TAB PO SCH (08:46)
[2021-07-27] MEDS: Polyethylene Glycol 3350 17 GM Packet PO SCH (08:51)
[2021-07-27] MEDS: Atorvastatin Calcium 40 MG TAB PO SCH (21:00)
[2021-07-27] MEDS: Donepezil HCl 10 MG TAB PO SCH (21:00)
[2021-07-27] MEDS: Tamsulosin HCl 0.4 MG CAP PO SCH (21:00)
[2021-07-27] MEDS: Melatonin 3 MG TAB PO PRN (23:56)
[2021-07-27] MEDS: Acetaminophen 500 MG TAB PO PRN (23:56)
[2021-07-27] MEDS: Docusate 100 MG CAP PO PRN (23:57)
[2021-07-28] MEDS: Apixaban 5 MG TAB PO SCH ×2 (08:24→20:27)
[2021-07-28] MEDS: Potassium Chloride 10 MEQ TAB PO SCH (08:24)
[2021-07-28] MEDS: Metoprolol Tartrate 25 MG TAB PO SCH ×2 (08:24→20:29)
[2021-07-28] MEDS: Cholecalciferol 1,000 UNITS (25 MCG) TAB PO SCH (08:24)
[2021-07-28] MEDS: Polyethylene Glycol 3350 17 GM Packet PO SCH ×2 (08:24→08:28)
[2021-07-28] MEDS: metFORMIN 850 MG TAB PO SCH ×2 (08:24→20:28)
[2021-07-28] MEDS: Finasteride 5 MG TAB PO SCH (08:24)
[2021-07-28] MEDS: Acetaminophen 500 MG TAB PO PRN ×2 (10:06→20:31)
[2021-07-28] MEDS: Atorvastatin Calcium 40 MG TAB PO SCH (20:28)
[2021-07-28] MEDS: Donepezil HCl 10 MG TAB PO SCH (20:29)
[2021-07-28] MEDS: Tamsulosin HCl 0.4 MG CAP PO SCH (20:31)
[2021-07-28] MEDS: Melatonin 3 MG TAB PO PRN (20:32)
[2021-07-29 08:03] VITALS: TEMP 97.5
[2021-07-29] MEDS: Cholecalciferol 1,000 UNITS (25 MCG) TAB PO SCH (08:31)
[2021-07-29] MEDS: Finasteride 5 MG TAB PO SCH (08:31)
[2021-07-29] MEDS: Metoprolol Tartrate 25 MG TAB PO SCH (08:31)
[2021-07-29] MEDS: Apixaban 5 MG TAB PO SCH (08:31)
[2021-07-29] MEDS: Potassium Chloride 10 MEQ TAB PO SCH (08:31)
[2021-07-29] MEDS: metFORMIN 850 MG TAB PO SCH (08:31)
[2021-07-29] MEDS: Polyethylene Glycol 3350 17 GM Packet PO SCH (08:32)
[2021-07-29 14:22] VITALS: BP 107/64
== END 2021-07-29 15:15 | DRG 947 ==
LOC: MADMS 19:07
PROVIDERS: ADMIT Family Medicine; ATTEND Family Medicine
DX: R53.81 Other malaise (principal); U07.1 COVID-19; J12.82 Pneumonia due to coronavirus disease 2019; J96.01 Acute respiratory failure with hypoxia; F03.90 Unspecified dementia, unspecified severity, without behavioral disturbance, psychotic disturbance, mood disturbance, and anxiety; I25.10 Atherosclerotic heart disease of native coronary artery without angina pectoris; K21.9 Gastro-esophageal reflux disease without esophagitis; E78.5 Hyperlipidemia, unspecified; N40.0 Benign prostatic hyperplasia without lower urinary tract symptoms; I12.9 Hypertensive chronic kidney disease with stage 1 through stage 4 chronic kidney disease, or unspecified chronic kidney disease; E11.22 Type 2 diabetes mellitus with diabetic chronic kidney disease; N18.30 Chronic kidney disease, stage 3 unspecified; Z66 Do not resuscitate; Z86.711 Personal history of pulmonary embolism; R00.0 Tachycardia, unspecified; I25.2 Old myocardial infarction; Z95.1 Presence of aortocoronary bypass graft; Z79.899 Other long term (current) drug therapy; Z99.81 Dependence on supplemental oxygen; Z91.81 History of falling
CPT/HCPCS: 36415; 36416; 71046; 80048; 82565; 85014; 85018; 85027; 85049; 90471; 90662; G0008

== ENCOUNTER 2021-08-05 15:23 | Outpatient (CLI) | payer MEDICARE | END 2021-08-05 15:24 | disposition home or self-care (01) | LOC: MADRAD 15:23 | PROVIDERS: ATTEND Family Medicine | DX: J12.82 Pneumonia due to coronavirus disease 2019 (principal); J96.01 Acute respiratory failure with hypoxia; I26.99 Other pulmonary embolism without acute cor pulmonale; R60.0 Localized edema | CPT/HCPCS: 71046 ==

== ENCOUNTER 2021-08-06 08:53 | Emergency (ER) | payer OTHER, MEDICARE ==
[2021-08-06 09:37] LABS: #Basophils 0.1 thou/uL (0.0-0.2); #Eosinphils 0.1 thou/uL (0.0-0.7); #Lymphocytes 0.8 thou/uL (1.20-3.40); #Neutrophils 6.3 thou/uL (1.40-6.50); %Basophils 1.5 % (0.0-1.0); %Eosinophils 1.1 % (0.0-10.0); %Lymphocytes 9.9 % (21.0-51.0); %Monocytes 11.6 % (0.0-10.0); %Neutrophils 75.9 % (42.0-75.0); Hemoglobin 11.2 g/dL (14.0-18.0); Mean Corpuscular HGB CONC 31.3 g/dL (32.0-36.0); Mean Corpuscular Hemoglobin 28.9 pg (27.0-31.0); Mean Corpuscular Volume 92.5 fL (78.0-98.0); Mean Platelet Volume 5.9 fL (7.4-10.4); Platelet Count 251 thou/uL (130-400); RBC Distribution Width 15.5 % (11.5-14.5); Red Blood Cell (RBC) Count 3.87 mill/uL (4.70-6.10); White Blood Cell (WBC) Count 8.3 thou/uL (4.8-10.8)
[2021-08-06 09:56] LABS: ALT (SGPT) 14 U/L (8-55); AST (SGOT) 13 U/L (5-34); Alkaline Phosphatase 119 U/L (40-110); Anion Gap 10 mmol/L (10-20); BUN (Urea Nitrogen) 12 mg/dL (8.4-25.7); Bilirubin, Total 0.8 mg/dL (0.2-1.2); Calc. Creatinine Clearance 0 mL/min (70-130); Calcium 8.6 mg/dL (7.8-10.44); Carbon Dioxide 26 mmol/L (23-31); Chloride 108 mmol/L (98-107); Globulin 3.2 g/dL (2.4-3.5); Glucose 111 mg/dL (83-110); Potassium 3.2 mmol/L (3.5-5.1); Protein, Total 6.2 g/dL (5.8-8.1); Sodium 141 mmol/L (136-145)
[2021-08-06] MEDS ORDERED: Potassium Chloride 20 MEQ TAB ONE (10:10)
[2021-08-06] MEDS ORDERED: Boostrix 0.5 ML (Tdap) VIAL ONE (10:10)
[2021-08-06 10:23] LABS: Magnesium 1.3 mg/dL (1.6-2.6)
[2021-08-06] MEDS ORDERED: Magnesium 2 GM/50 ML BAG (IN WATER) ONE (10:44)
== END 2021-08-06 12:00 | disposition home or self-care (01) ==
LOC: MADERS 08:53
DX: S43.004A Unspecified dislocation of right shoulder joint, initial encounter (principal); S01.01XA Laceration without foreign body of scalp, initial encounter; S50.312A Abrasion of left elbow, initial encounter; R60.0 Localized edema; E87.6 Hypokalemia; E83.42 Hypomagnesemia; I25.2 Old myocardial infarction; K21.9 Gastro-esophageal reflux disease without esophagitis; I10 Essential (primary) hypertension; Z79.01 Long term (current) use of anticoagulants; Z79.899 Other long term (current) drug therapy; Z79.84 Long term (current) use of oral hypoglycemic drugs; Z23 Encounter for immunization; W01.198A Fall on same level from slipping, tripping and stumbling with subsequent striking against other object, initial encounter; Y93.01 Activity, walking, marching and hiking
CPT/HCPCS: 12001; 70450; 71045; 72125; 80053; 83605; 83735; 83880; 84484; 85025; 90471; 90715; 93005; 96365; J3475

== ENCOUNTER 2021-08-09 10:15 | Outpatient (CLI) | payer MEDICARE ==
[2021-08-09 10:44] LABS: Anion Gap 13 mmol/L (10-20); BUN (Urea Nitrogen) 14 mg/dL (8.4-25.7); Calc. Creatinine Clearance 0 mL/min (70-130); Calcium 8.8 mg/dL (7.8-10.44); Carbon Dioxide 24 mmol/L (23-31); Chloride 105 mmol/L (98-107); Glucose 118 mg/dL (83-110); Potassium 3.6 mmol/L (3.5-5.1); Sodium 138 mmol/L (136-145)
== END 2021-08-09 10:16 | disposition home or self-care (01) ==
LOC: MADLAB 10:15
PROVIDERS: ATTEND Family Medicine
DX: R60.0 Localized edema (principal)
CPT/HCPCS: 36415; 80048

== ENCOUNTER 2021-09-07 03:00 | Emergency (ER) | payer MEDICARE ==
[2021-09-07] MEDS ORDERED: HYDROcodone/Acetaminophen 5/325 mg Tablet ONE (03:55)
== END 2021-09-07 04:17 ==
LOC: MADERS 03:00
DX: S43.101A Unspecified dislocation of right acromioclavicular joint, initial encounter (principal); I10 Essential (primary) hypertension; K21.9 Gastro-esophageal reflux disease without esophagitis; I25.10 Atherosclerotic heart disease of native coronary artery without angina pectoris; Z79.899 Other long term (current) drug therapy; Z79.84 Long term (current) use of oral hypoglycemic drugs; Z79.01 Long term (current) use of anticoagulants; W19.XXXA Unspecified fall, initial encounter

== ENCOUNTER 2021-09-13 09:42 | Outpatient (CLI) | payer MEDICARE ==
[2021-09-13 10:19] LABS: ALT (SGPT) 8 U/L (8-55); AST (SGOT) 10 U/L (5-34); Albumin 3.9 g/dL (3.4-4.8); Alkaline Phosphatase 156 U/L (40-110); Anion Gap 13 mmol/L (10-20); BUN (Urea Nitrogen) 17 mg/dL (8.4-25.7); Bilirubin, Total 0.5 mg/dL (0.2-1.2); Calc. Creatinine Clearance 0 mL/min (70-130); Calcium 9.3 mg/dL (7.8-10.44); Carbon Dioxide 24 mmol/L (23-31); Chloride 108 mmol/L (98-107); Cholesterol 115 mg/dl (< 200 Desired); Globulin 3.1 g/dL (2.4-3.5); Glucose 107 mg/dL (83-110); HDL Cholesterol 38 mg/dL (>60 Neg Risk); LDL Cholesterol, Calculated 45 mg/dL; Potassium 3.9 mmol/L (3.5-5.1); Sodium 141 mmol/L (136-145); Triglycerides 158 mg/dL (Less than 150)
[2021-09-13 10:46] LABS: Band 2 % (5-11); Eosinophils 1 % (0-10); Lymphocytes 24 % (21-51); MDiff Complete? YES; Manual Diff?? YES; Mean Corpuscular HGB CONC 30.9 g/dL (32.0-36.0); Mean Corpuscular Hemoglobin 28.7 pg (27.0-31.0); Monocytes 6 % (0-10); Neutrophil 57 % (42-75); Platelet Count 316 thou/uL (130-400); Red Blood Cell (RBC) Count 4.17 mill/uL (4.70-6.10); White Blood Cell (WBC) Count 8.8 thou/uL (4.8-10.8)
[2021-09-13 10:47] LABS: Anisocytosis SLIGHT = 6-15 cells (100X) (0-5/hpf); Platelet Morphology Comment Appears Adequate
[2021-09-13 17:39] LABS: Hemoglobin A1c 5.4 % (4.0-6.0)
== END 2021-09-13 09:43 | disposition home or self-care (01) ==
LOC: MADLAB 09:42
PROVIDERS: ATTEND Family Medicine
DX: U07.1 COVID-19 (principal); E11.9 Type 2 diabetes mellitus without complications; E78.2 Mixed hyperlipidemia; J12.82 Pneumonia due to coronavirus disease 2019
CPT/HCPCS: 36415; 71046; 80053; 80061; 83036; 85025

== ENCOUNTER 2023-05-20 19:25 | Emergency (ER) | payer MEDICARE ==
[2023-05-20] MEDS ORDERED: Fluconazole 100 MG TAB ONE (20:07)
[2023-05-20 20:32] LABS: Anion Gap 18 mmol/L (10-20); BUN (Urea Nitrogen) 20 mg/dL (8.4-25.7); Calc. Creatinine Clearance 0 mL/min (70-130); Calcium 9.4 mg/dL (7.8-10.44); Carbon Dioxide 19 mmol/L (23-31); Chloride 112 mmol/L (98-107); Estimated GFR 45; Glucose 158 mg/dL (83-110); Sodium 145 mmol/L (136-145)
[2023-05-20] MEDS ORDERED: Lactated Ringer's 1,000 ML ONE (21:04)
[2023-05-20 22:19] LABS: Bilirubin Negative (Negative); Blood, Urine Trace (Negative); Clarity Clear (Clear); Glucose, Urine (Dipstick) >=1000 mg/dL (Negative); Ketone, Urine Negative (Negative); Leukocyte Trace (Negative); Nitrite Negative (Negative); Protein, Urine (Dipstick) Negative (Neg-Trace); Specific Gravity, Urine 1.025 (1.005-1.030); Urobilinogen 0.2 mg/dL (Less than 2)
[2023-05-20 22:20] LABS: CAUTI Indications for Culture Dysuria,urgency,freq; RBC/HPF 0-3 HPF (0-3); Squamous Epithelial 0-3 HPF (0-3)
[2023-05-20 22:21] LABS: Urine Culture Reflex Yes Yes
[2023-05-21 20:41] LABS: Chlam.trachomatis by PCR,Urine Not Detected (NotDetected); GC N.gonorrhoeae PCR,UrineVOID Not Detected (NotDetected)
== END 2023-05-20 23:05 ==
LOC: MADERS 19:25
DX: B37.42 Candidal balanitis (principal); R94.4 Abnormal results of kidney function studies; R82.81 Pyuria; I25.2 Old myocardial infarction; I10 Essential (primary) hypertension; K21.9 Gastro-esophageal reflux disease without esophagitis; I25.10 Atherosclerotic heart disease of native coronary artery without angina pectoris; E78.5 Hyperlipidemia, unspecified; Z95.1 Presence of aortocoronary bypass graft; Z79.84 Long term (current) use of oral hypoglycemic drugs; Z79.899 Other long term (current) drug therapy; Z79.01 Long term (current) use of anticoagulants
CPT/HCPCS: 36415; 80048; 81001; 87077; 87086; 87491; 87591; 96360; J7120

== ENCOUNTER 2023-08-28 09:50 | Emergency (ER) | payer MEDICARE ==
[2023-08-28] MEDS ORDERED: Acetaminophen 500 MG TAB ONE (10:06)
[2023-08-28] MEDS ORDERED: Bacitracin 1 PK ONE ×3 (10:06→12:36)
[2023-08-28] MEDS ORDERED: Boostrix 0.5 ML (Tdap) VIAL (>/=7 yrs of age) ONE (10:06)
[2023-08-28] MEDS ORDERED: Lidocaine 4% Patch ONE (11:20)
== END 2023-08-28 12:42 | disposition home or self-care (01) ==
LOC: MADERS 09:50
DX: S09.90XA Unspecified injury of head, initial encounter (principal); S22.070A Wedge compression fracture of T9-T10 vertebra, initial encounter for closed fracture; S22.069A Unspecified fracture of T7-T8 vertebra, initial encounter for closed fracture; S50.312A Abrasion of left elbow, initial encounter; S50.311A Abrasion of right elbow, initial encounter; M25.78 Osteophyte, vertebrae; K21.9 Gastro-esophageal reflux disease without esophagitis; E78.5 Hyperlipidemia, unspecified; I10 Essential (primary) hypertension; Z79.899 Other long term (current) drug therapy; Z79.84 Long term (current) use of oral hypoglycemic drugs; Z23 Encounter for immunization; W01.10XA Fall on same level from slipping, tripping and stumbling with subsequent striking against unspecified object, initial encounter
CPT/HCPCS: 70450; 71045; 72125; 72128; 72131; 72170; 90471; 90715

== ENCOUNTER 2023-09-11 08:18 | Outpatient (CLI) | payer MEDICARE | END 2023-09-11 08:19 | disposition home or self-care (01) | LOC: MADLAB 08:18 → MADRAD 08:19 | PROVIDERS: ATTEND Neurological Surgery | DX: M48.56XD Collapsed vertebra, not elsewhere classified, lumbar region, subsequent encounter for fracture with routine healing (principal); M47.816 Spondylosis without myelopathy or radiculopathy, lumbar region; R93.7 Abnormal findings on diagnostic imaging of other parts of musculoskeletal system | CPT/HCPCS: 72100 ==

== ENCOUNTER 2023-09-20 21:01 | Emergency (ER) | payer MEDICARE ==
[2023-09-20] MEDS ORDERED: Ondansetron PF 4 MG/2 ML Vial ONE (21:23)
[2023-09-20] MEDS ORDERED: Sodium Chloride 0.9% 1,000 ML ONE (21:23)
[2023-09-20 21:40] LABS: #Basophils 0.1 thou/uL (0.0-0.2); #Lymphocytes 0.3 thou/uL (1.20-3.40); #Monocytes 0.9 thou/uL (0.11-0.59); #Neutrophils 11.5 thou/uL (1.40-6.50); %Basophils 0.4 % (0.0-1.0); %Eosinophils 0.2 % (0.0-10.0); %Lymphocytes 2.6 % (21.0-51.0); %Monocytes 6.7 % (0.0-10.0); %Neutrophils 90.1 % (42.0-75.0); Hematocrit 47.6 % (42.0-52.0); Hemoglobin 14.4 g/dL (14.0-18.0); Mean Corpuscular HGB CONC 30.2 g/dL (32.0-36.0); Mean Corpuscular Hemoglobin 28.6 pg (27.0-31.0); Mean Corpuscular Volume 94.8 fl (78.0-98.0); Mean Platelet Volume 7.8 fL (7.4-10.4); Platelet Count 253 10x3/uL (130-400); RBC Distribution Width 14.4 % (11.5-14.5); Red Blood Cell (RBC) Count 5.02 mill/uL (4.70-6.10); White Blood Cell (WBC) Count 12.8 10x3/uL (4.8-10.8)
[2023-09-20 22:05] LABS: ALT (SGPT) 21 U/L (8-55); AST (SGOT) 13 U/L (5-34); Alkaline Phosphatase 166 U/L (40-110); Anion Gap 19 mmol/L (10-20); BUN (Urea Nitrogen) 25 mg/dL (8.4-25.7); Bilirubin, Total 0.7 mg/dL (0.2-1.2); Calc. Creatinine Clearance 0 mL/min (70-130); Calcium 8.6 mg/dL (7.8-10.44); Carbon Dioxide 20 mmol/L (23-31); Chloride 109 mmol/L (98-107); Estimated GFR 47; Globulin 2.5 g/dL (2.4-3.5); Glucose 176 mg/dL (83-110); Lipase 23 U/L (8-78); Potassium 4.6 mmol/L (3.5-5.1); Protein, Total 6.5 g/dL (5.8-8.1); Sodium 143 mmol/L (136-145)
[2023-09-20 22:06] LABS: Troponin I Less than 0.010 ng/mL (< 0.028)
[2023-09-20] MEDS ORDERED: Sodium Chloride 0.9% 2,000 ML ONE (22:30)
[2023-09-20] MEDS ORDERED: Sodium Chloride 0.9% 250 ML 250 ML ONE (22:30)
[2023-09-21 00:41] LABS: Lactic Acid 2.1 mmol/L (0.5-2.2)
[2023-09-21 01:06] LABS: Bilirubin Negative (Negative); Blood, Urine Negative (Negative); Clarity Clear (Clear); Glucose, Urine (Dipstick) 500 mg/dL (Negative); Ketone, Urine Negative (Negative); Leukocyte Negative (Negative); Nitrite Negative (Negative); Protein, Urine (Dipstick) Negative (Neg-Trace); Urobilinogen 0.2 mg/dL (Less than 2); pH, Urine 5.5 (5.0-9.0)
[2023-09-21 01:10] LABS: CAUTI Indications for Culture Dysuria,urgency,freq; RBC/HPF None Seen HPF (0-3); Squamous Epithelial 0-3 HPF (0-3); WBC/HPF 0-3 HPF (0-3); Yeast-Budding Rare HPF (None Seen)
[2023-09-21 01:11] LABS: Urine Culture Reflex No No
== END 2023-09-21 01:26 ==
LOC: MADERS 21:01
DX: E86.0 Dehydration (principal); R11.2 Nausea with vomiting, unspecified; I10 Essential (primary) hypertension; E11.9 Type 2 diabetes mellitus without complications; K21.9 Gastro-esophageal reflux disease without esophagitis; I25.2 Old myocardial infarction; E78.5 Hyperlipidemia, unspecified; I25.10 Atherosclerotic heart disease of native coronary artery without angina pectoris; Z79.84 Long term (current) use of oral hypoglycemic drugs; Z79.899 Other long term (current) drug therapy
CPT/HCPCS: 36415; 74022; 80053; 81001; 83605; 83690; 84484; 85025; 93005; 96361; 96374; J2405; J7050

== ENCOUNTER 2024-09-22 02:05 | Emergency (ER) | payer MEDICARE ==
[2024-09-22 02:41] LABS: Band 2 % (5-11); Hematocrit 38.9 % (42.0-52.0); Hemoglobin 12.5 g/dL (14.0-18.0); Lymphocytes 19 % (21-51); MDiff Complete? YES; Mean Corpuscular HGB CONC 32.1 g/dL (32.0-36.0); Mean Corpuscular Hemoglobin 29.4 pg (27.0-31.0); Mean Corpuscular Volume 91.8 fl (78.0-98.0); Mean Platelet Volume 7.7 fL (7.4-10.4); Monocytes 6 % (0-10); Neutrophil 73 % (42-75); Platelet Count 230 10x3/uL (130-400); RBC Distribution Width 12.9 % (11.5-14.5); Red Blood Cell (RBC) Count 4.24 mill/uL (4.70-6.10); White Blood Cell (WBC) Count 6.2 10x3/uL (4.8-10.8)
[2024-09-22 02:48] LABS: Anion Gap 15 mmol/L (10-20); BUN (Urea Nitrogen) 16 mg/dL (8.4-25.7); Calc. Creatinine Clearance 0 mL/min (70-130); Carbon Dioxide 21 mmol/L (23-31); Chloride 108 mmol/L (98-107); Estimated GFR 54; Glucose 280 mg/dL (83-110); Sodium 140 mmol/L (136-145)
[2024-09-22 02:51] LABS: Troponin I Less than 0.010 ng/mL (< 0.028)
[2024-09-22 04:31] LABS: Bilirubin Negative (Negative); Blood, Urine Trace (Negative); Clarity Clear (Clear); Glucose, Urine (Dipstick) 500 mg/dL (Negative); Ketone, Urine Negative (Negative); Leukocyte Negative (Negative); Nitrite Negative (Negative); Protein, Urine (Dipstick) Negative (Neg-Trace)
[2024-09-22 04:33] LABS: CAUTI Indications for Culture Alt mental st,lethar; Squamous Epithelial 0-3 HPF (0-3); WBC/HPF None Seen HPF (0-3)
[2024-09-22 04:34] LABS: Urine Culture Reflex No No
[2024-09-22 04:36] LABS: Amphetamine Not Detected (NotDetected); Barbiturates Screen Not Detected (NotDetected); Benzodiazepine Screen Not Detected (NotDetected); Cocaine Metabolite Screen Not Detected (NotDetected); Methadone Not Detected (NotDetected); Methamphetamine Not Detected (NotDetected); Opiate Screen Not Detected (NotDetected); Oxycodone Screen Not Detected (NotDetected); Phencyclidine (PCP) Not Detected (NotDetected); THC/Cannabinoid Screen Not Detected (NotDetected); Tricyclic Screen Not Detected (NotDetected)
== END 2024-09-22 06:05 ==
LOC: MADERS 02:05
DX: S51.011A Laceration without foreign body of right elbow, initial encounter (principal); S80.211A Abrasion, right knee, initial encounter; I25.2 Old myocardial infarction; I10 Essential (primary) hypertension; K21.9 Gastro-esophageal reflux disease without esophagitis; I25.10 Atherosclerotic heart disease of native coronary artery without angina pectoris; Z79.899 Other long term (current) drug therapy; W18.12XA Fall from or off toilet with subsequent striking against object, initial encounter
CPT/HCPCS: 51701; 70450; 72125; 80048; 80306; 81001; 84484; 85025; 93005

== ENCOUNTER 2025-05-16 07:24 | Emergency (ER) | payer MEDICARE ==
[2025-05-16 08:07] LABS: Hematocrit 35.7 % (42.0-52.0); Hemoglobin 11.4 g/dL (14.0-18.0); Mean Corpuscular Hemoglobin 29.9 pg (27.0-31.0); Mean Corpuscular Volume 93.8 fl (78.0-98.0); Platelet Count 246 10x3/uL (130-400); Red Blood Cell (RBC) Count 3.81 mill/uL (4.70-6.10); White Blood Cell (WBC) Count 6.2 10x3/uL (4.8-10.8)
[2025-05-16 08:08] LABS: #Basophils 0.1 thou/uL (0.0-0.2); #Eosinophils 0.0 thou/uL (0.0-0.7); #Lymphocytes 1.1 thou/uL (1.20-3.40); #Monocytes 0.8 thou/uL (0.11-0.59); #Neutrophils 4.3 thou/uL (1.40-6.50); %Basophils 1.3 % (0.0-1.0); %Eosinophils 0.6 % (0.0-10.0); %Lymphocytes 16.9 % (21.0-51.0); %Monocytes 12.6 % (0.0-10.0); %Neutrophils 68.6 % (42.0-75.0)
[2025-05-16 08:15] LABS: ALT (SGPT) 13 U/L (Less than 45); AST (SGOT) 30 U/L (11-34); Albumin 2.7 g/dL (3.1-4.5); Alkaline Phosphatase 182 U/L (40-110); Anion Gap 16 mmol/L (10-20); BUN (Urea Nitrogen) 8 mg/dL (8.4-25.7); Bilirubin, Total 0.4 mg/dL (0.3-1.2); Calc. Creatinine Clearance 0 mL/min (70-130); Calcium 8.2 mg/dL (7.8-10.44); Carbon Dioxide 21 mmol/L (23-31); Chloride 114 mmol/L (98-107); Globulin 3.2 g/dL (2.4-3.5); Glucose 111 mg/dL (83-110); Potassium 4.0 mmol/L (3.5-5.1); Sodium 147 mmol/L (136-145)
[2025-05-16 08:54] LABS: Magnesium 1.8 mg/dL (1.6-2.6)
[2025-05-16 09:01] LABS: Troponin I Less than 0.010 ng/mL (< 0.028)
[2025-05-16 10:09] LABS: Glucose, Urine (Dipstick) Negative (Negative); Leukocyte Trace (Negative); Protein, Urine (Dipstick) Negative (Neg-Trace); Specific Gravity, Urine 1.015 (1.005-1.030)
[2025-05-16 10:15] LABS: CAUTI Indications for Culture Alt mental st,lethar; RBC/HPF 0-3 HPF (0-3)
[2025-05-16 10:16] LABS: Bacteria/HPF Rare-Few HPF (None Seen); WBC/HPF 0-3 HPF (0-3)
[2025-05-16 10:17] LABS: Urine Culture Reflex No No
[2025-05-16 10:21] LABS: Cocaine Metabolite Screen Negative (Negative); THC/Cannabinoid Screen Negative (Negative); Tricyclic Screen Negative (Negative)
[2025-05-16] MEDS ORDERED: Enoxaparin 100 MG (1 mL) SYRINGE ONE (14:28)
== END 2025-05-16 15:22 | disposition short-term general hospital (02) ==
LOC: MADERS 07:24
DX: R41.82 Altered mental status, unspecified (principal); J18.9 Pneumonia, unspecified organism; E86.0 Dehydration; N39.0 Urinary tract infection, site not specified; E11.9 Type 2 diabetes mellitus without complications; I25.2 Old myocardial infarction; I10 Essential (primary) hypertension; Z95.5 Presence of coronary angioplasty implant and graft; Z79.82 Long term (current) use of aspirin; Z79.899 Other long term (current) drug therapy; Z79.84 Long term (current) use of oral hypoglycemic drugs; Z79.01 Long term (current) use of anticoagulants
CPT/HCPCS: 36416; 70450; 71045; 71275; 74177; 80053; 80306; 81001; 83690; 83735; 83880; 84484; 85025; 85379; 93005; 94760; 96372; 36415-59; J0692; J1650; J7030